=== PATIENT | female | born 1955 | race Caucasian/White ===

== ENCOUNTER → 2016-10-16 | Outpatient (CLI) | payer BC ==
[~2016-10-16] MED LIST: ASPIR-LOW81 MG PO; BUPROPION XL300 MG PO; CLARITIN DPS10 MG PO; COZAAR100 MG PO; FLONASE 0.05% D16 GM NS; MOBIC15 MG PO; NEURONTIN DPS100 MG PO; NEURONTIN DPS300 MG PO; NEURONTIN DPS600 MG PO; NIACIN ER1000 MG PO; PERCOCET 5 DPS1 TAB PO; SENOKOT S1 TAB PO; SKELAXIN800 MG PO; SYNTHROID DP0.125 MG PO; THERA1 EACH PO; TIZANIDINE HCL2 M1 PO; TYLENOL DPS325 MG PO; ULTRAM DPS50 MG PO; VISTARIL-DPS50 MG PO; VITAMIN D31000 UNIT PO; XARELTO10 MG PO; [UNRECOGNIZED DRUG - OTHER] PO
== END | disposition home or self-care (01) ==
LOC: RAD.S 09:00
DX: Z12.31 Encounter for screening mammogram for malignant neoplasm of breast (principal); N63 Unspecified lump in breast